=== PATIENT | female | born 1975 | race Caucasian/White ===

== ENCOUNTER 2025-09-02 21:07 | Emergency (ER) | payer SELFPAY ==
[2025-09-02 21:10] VITALS: BP 190/125
[2025-09-03 02:36] VITALS: BP 160/91
[2025-09-03 02:40] VITALS: BMI 37.9
--- NOTE | 2025-09-03 03:21 | ED.GENMED ---
History of Present Illness
General
Chief Complaint: Musculo-Skeletal Complaint
Source: patient
Exam Limitations: none
Time Seen by Provider: 09/03/25 03:12
Nursing documentation reviewed up to this point in time: agreed with
History of Present Illness
History of Present Illness:
50-year-old female with history as noted presents for evaluation of left leg pain. Patient reports that she has been dealing with a Lisfranc sprain and tibial injury for the past few months and has been following with orthopedics through [place].
She is currently in a walking boot on the left leg. She says that today she accidentally hyperextended her knee and she felt a pop in the lateral part of her left leg radiating down towards her ankle. She had an increased level pain at that time.
She was concerned she may have sustained an additional injury and so she came to the ER for assessment. She is scheduled for orthopedic follow-up soon regarding her chronic left leg issues.
Past History
Past History
ED Past Medical History: Other (Kidney stones) and Other (Irritable bowel syndrome)
ED Past Surgical History: ( x3)
Social History
Tobacco: Non-smoker
Alcohol: Occasional
Personal:
Living: with family
Employment: Employed
Family History
Family History: CAD (Both mother and father with coronary artery disease, father mid 40s.); Negative Early CAD or Sudden
Review of Systems
Review of Systems
All Other Systems: ROS reviewed and negative except as documented in HPI and ROS
Musculoskeletal: Reports joint pain and muscle pain
Phy Exam
Physical Exam
Physical Exam:
General: Well appearing and non-toxic
HEENT: protecting airway
Neck: appears supple
CV: No evidence of cyanosis
Resp: No accessory muscle use
Abd: Non-distended
Extremities: No deformities, no edema in the legs, strong pulses throughout the left lower extremity; she has some tenderness along the lateral left calf as well as the lateral malleolus but no tenderness of the medial calf, no tenderness of the
knee, no pain with manipulation of patella, no joint effusion in the; she has no midfoot tenderness
Neuro: Alert
Psych: Normal affect
Skin: Intact
Scores
Heart Failure Risk
Heart Failure Risk Score: Not Applicable
Heart Score for Chest Pain Patients
STEMI patient?: Not applicable
Withdrawal Assessment of Alcohol
Withdrawal Assessment Completed?: Not applicable
Course
Orders/Labs/Results
Orders:
Orders
09/03/25 03:20
CR Ankle - Left Min 3 Views Urgent
Comment:
Reason For Exam: ankle pain
CR Leg Tibia/fibula Left 2 Vw Urgent
Comment:
Reason For Exam: leg pain
Vital Signs
Initial and Last Documented VS:
Initial Vital Signs
Temp Pulse Resp BP Pulse Ox
36.6 C 107 18 190/125 98
09/02/25 21:10 09/02/25 21:10 09/02/25 21:10 09/02/25 21:10 09/02/25 21:10
Last Documented Vital Signs
Temp Pulse Resp BP Pulse Ox
36.4 C 74 20 160/91 98
09/03/25 02:36 09/03/25 02:36 09/03/25 02:36 09/03/25 02:36 09/03/25 03:22
MDM/Problems Addressed
Differential Diagnosis Includes:
Knee sprain, high ankle sprain, muscle strain
MDM/Problems Addressed:
50-year-old female presents for evaluation of left leg pain after minor hyperextension injury today. Vitals and exam as above. Sent for x-rays of the lower leg and ankle which showed no acute abnormalities on my review. Recommended that she
remain in walking boot and follow-up with orthopedist as scheduled. Stable for discharge. All questions answered.
*Radiology
Radiology exam reviewed: preliminary read by ED provider
*Pulse Oximetry
SaO2: 98
Oxygen Mode of Delivery: Room air
Patient hypoxic: no (98%)
*Critical Care Note
Total Time (30-74mins, 75-104mins- exclusive of procedures): Not Applicable
Data Reviewed
Source: patient
ED Attending Note
-
Portions of this chart may have been created with voice recognition software.� Occasional wrong word or��sound alike� substitutions may have occurred due to the inherent limitations of voice recognition software.
Discharge Plan
Departure
Patient Disposition: Home (Routine Discharge)
Date of Disposition: 09/03/25
Time of Disposition: 03:37
Patient with high blood pressure during this ER visit?: Yes
Discharge Problem:
Ankle pain
Instructions: Walking Boot
Prescriptions:
No Action
lorazepam 0.5 MG tablet
0.5 mg PO BIDPRN PRN (Reason: anxiety)
pantoprazole 40 MG tablet,delayed release (DR/EC)
40 mg PO DAILY Qty: 30 0RF
cetirizine 10 MG tablet
10 mg PO DAILY
Activity Restrictions/Additional Instructions:
Thank you for visiting the Emergency Department at [facility].
1. Please schedule a follow up appointment as directed. Call first thing tomorrow morning to make an appointment.
2. If indicated, please take your medications as instructed and indicated on discharge paperwork.
3. If any of your symptoms do not improve, or persist, or become more severe within 6-12 hours, please return to the emergency department for further care.
4. Please return to the emergency department if you develop a headache, neck pain/stiffness, fever greater than 100.4F, chest pain, shortness of breath, persistent nausea, vomiting, slurred speech, difficulty walking, numbness/tingling, weakness,
signs of infection or any other symptoms that are worrisome to you.
Please call [phone] if you have any questions.
Interventions
Interventions:
*Risk Screen - Suicide Last Done: 09/02/25 21:13
*General Assessment Last Done: 09/02/25 21:12
*Neglect/Abuse Screening Last Done: 09/02/25 21:13
*ED- Fall Risk Assessment Last Done: 09/03/25 02:39
*ED COVID-19 Vaccine History Last Done: 09/02/25 21:12
*ED Influenza Vaccine History Last Done: 09/02/25 21:12
ED-Musculoskeletal Assessment Last Done: 09/03/25 02:39
Discharge Date and Time
Print Language: DANISH
== END 2025-09-03 04:25 | disposition home or self-care (01) ==
LOC: EMR 21:07
PROVIDERS: EMERGENCY PHYSICIAN Emergency Medicine
DX: M25.572 Pain in left ankle and joints of left foot (principal); X50.9XXA Other and unspecified overexertion or strenuous movements or postures, initial encounter; K58.9 Irritable bowel syndrome, unspecified; Z82.49 Family history of ischemic heart disease and other diseases of the circulatory system; Z87.442 Personal history of urinary calculi; Z98.891 History of uterine scar from previous surgery
CPT/HCPCS: 99283; 73590; 73610

== ENCOUNTER → 2025-10-18 09:10 | Outpatient (REF) | payer OTHER, SELFPAY | LOC: WDC 09:10 | PROVIDERS: ATTENDING PHYSICIAN Obstetrics & Gynecology; FAMILY PHYSICIAN Family Medicine | DX: N64.4 Mastodynia (principal) | CPT/HCPCS: 76642; 77062; 77066 ==

== ENCOUNTER → 2025-10-31 08:10 | Outpatient (REF) | payer OTHER, SELFPAY | LOC: HWRAD 08:10 | PROVIDERS: ATTENDING PHYSICIAN Obstetrics & Gynecology; FAMILY PHYSICIAN Family Medicine | DX: N92.6 Irregular menstruation, unspecified (principal) | CPT/HCPCS: 76830; 76856 ==